=== PATIENT | female | born 2000 | race Hispanic/Latino ===

== ENCOUNTER 2021-11-23 12:12 | Day surgery (SDC) | payer OTHER ==
[2021-11-23] MEDS ORDERED: Acetaminophen 500 MG TAB ONE (13:00)
[2021-11-23] MEDS ORDERED: Acetaminophen 500 MG TAB PO SCH (13:00)
[2021-11-23] MEDS ORDERED: Iron Sucrose Complex 500 MG in Sodium Chloride 0.9% 250 ML 250 ML IVPB SCH (13:00)
== END 2021-11-23 17:30 | disposition home or self-care (01) ==
LOC: CSHSDC/OP 12:12
PROVIDERS: ATTEND Student in an Organized Health Care Education/Training Program
DX: O99.019 Anemia complicating pregnancy, unspecified trimester (principal); Z3A.00 Weeks of gestation of pregnancy not specified
CPT/HCPCS: J1756; J7050

== ENCOUNTER 2021-12-05 15:53 | Inpatient (IN) | payer OTHER ==
[~2021-12-05 15:53] MED LIST: Bupivacaine 0.25% HCL 30 ML VIAL ONE
[2021-12-05] MEDS ORDERED: Promethazine HCl 25 MG/ML VIAL IM PRN ×2 (16:47→19:15)
[2021-12-05] MEDS ORDERED: hydrALAZINE 20 MG/ML VIAL SLOW IVP PRN ×4 (16:47→19:15)
[2021-12-05] MEDS ORDERED: Lorazepam 2 MG/ML VIAL SLOW IVP PRN (16:47)
[2021-12-05] MEDS ORDERED: Calcium Gluc 4.6 MEQ/10 ML (100 MG/ML) SLOW IVP PRN (16:47)
[2021-12-05] MEDS ORDERED: Labetalol HCl 100 MG/20 ML VIAL SLOW IVP PRN ×2 (16:47)
[2021-12-05] MEDS ORDERED: Docusate 100 MG CAP PO PRN (16:47)
[2021-12-05] MEDS ORDERED: Ondansetron PF 4 MG/2 ML Vial IVP PRN ×2 (16:47→19:15)
[2021-12-05 16:59] VITALS: BMI 29.8
[2021-12-05 17:44] LABS: Hemoglobin 10.9 g/dL (12.0-15.5); Mean Corpuscular HGB CONC 32.2 g/dL (32.0-36.0); Mean Corpuscular Hemoglobin 24.3 pg (27.0-33.0); Mean Corpuscular Volume 75.4 fl (81.6-98.3); Mean Platelet Volume 9.9 fl (7.4-10.4); Platelet Count 302 10x3/uL (150-450); RBC Distribution Width 20.3 % (11.5-14.5); Red Blood Cell (RBC) Count 4.48 10x6/uL (3.90-5.03); White Blood Cell (WBC) Count 11.7 10x3/uL (3.5-10.5)
[2021-12-05 18:00] LABS: ALT (SGPT) 18 U/L (8-55); AST (SGOT) 18 U/L (5-34); Albumin 3.5 g/dL (3.5-5.0); Alkaline Phosphatase 166 U/L (40-100); Anion Gap 14 mmol/L (10-20); BUN (Urea Nitrogen) 11 mg/dL (7.0-18.7); Bilirubin, Total 0.3 mg/dL (0.2-1.2); Calc. Creatinine Clearance 180 mL/min (70-130); Calcium 9.2 mg/dL (7.8-10.44); Carbon Dioxide 18 mmol/L (22-29); Chloride 108 mmol/L (98-107); Estimated GFR 131; Globulin 3.3 g/dL (2.4-3.5); Glucose 67 mg/dL (70-105); Protein, Total 6.8 g/dL (6.0-8.3); Sodium 136 mmol/L (136-145)
[2021-12-05 18:22] LABS: HBSAg Index 0.16 S/CO (0-0.99); Hep B Surf Ag Non-Reactive S/CO (NonReactive)
[2021-12-05 18:24] LABS: Syphilis Antibody Nonreactive (Nonreactive); Syphilis Antibody Index 0.03 S/CO (<1.00 Non-Reactive)
[2021-12-05 18:35] LABS: Creatinine, Urine 114.21 mg/dL (47-110)
[2021-12-05] MEDS ORDERED: Lidocaine 1% (PF) 30 ML VIAL SC PRN (19:15)
[2021-12-05] MEDS ORDERED: NS w/ Oxytocin 30 units 500 ML IV SCH ×2 (19:15)
[2021-12-05] MEDS ORDERED: Misoprostol 200 MCG TAB PR PRN (19:15)
[2021-12-05] MEDS ORDERED: Diphenoxylate HCl/Atropine Tablet PO PRN ×2 (19:15)
[2021-12-05] MEDS ORDERED: Ibuprofen 800 MG TAB PO PRN (19:15)
[2021-12-05] MEDS ORDERED: Misoprostol 100 MCG TAB VAG SCH (19:15)
[2021-12-05] MEDS ORDERED: Carboprost 250 MCG/ML AMP IM PRN (19:15)
[2021-12-05 19:20] LABS: Bilirubin Neg (Negative); Blood, Urine 150 (Negative); Clarity Cloudy (Clear); Glucose, Urine (Dipstick) Normal (Negative); Ketone, Urine 15 mg/dL (Negative); Leukocyte 500 (Negative); Nitrite Positive (Negative); Protein, Urine (Dipstick) 100 mg/dl (Neg-Trace); Specific Gravity, Urine 1.015 (1.005-1.030); Urobilinogen Normal mg/dL (Less than 2)
[2021-12-05 19:29] LABS: WBC/HPF Greater Than 50 HPF (0-3)
[2021-12-05 19:30] LABS: Bacteria/HPF 2+ HPF (None Seen); Mucous/LPF Rare LPF (<2+)
[2021-12-05] MEDS: Misoprostol 100 MCG TAB VAG SCH (19:58)
[2021-12-05] MEDS: Lactated Ringer's 1,000 ML IV SCH (20:00)
[2021-12-05] MEDS: Misoprostol 100 MCG TAB PO SCH (21:00)
[2021-12-05] MEDS ORDERED: Fosfomycin 3 GM/Packet PO SCH (21:30)
[2021-12-06] MEDS ORDERED: Fluticasone Propionate Nasal Spray 16 gm Bottle NASAL SCH ×2 (00:15→09:00)
[2021-12-06 01:39] LABS: SARS-CoV-2 NAA Rapid Test Not Detected (NotDetected)
[2021-12-06] MEDS: Misoprostol 100 MCG TAB VAG SCH ×2 (01:59→06:15)
[2021-12-06] MEDS: Butorphanol Tartrate 1 MG/ML VIAL SLOW IVP PRN ×2 (13:53→16:39)
[2021-12-06] MEDS ORDERED: Fentanyl 2 mcg/Bup 0.1% Cadd 100 ML ONE (19:33)
[2021-12-06] MEDS: Lactated Ringer's 1,000 ML IV SCH (19:35)
[2021-12-06] MEDS ORDERED: Ondansetron PF 4 MG/2 ML Vial IVP PRN (20:35)
[2021-12-06] MEDS ORDERED: Lactated Ringer's 500 ML IV PRN (20:35)
[2021-12-06] MEDS ORDERED: Naloxone HCl 0.4 mg/ml Vial IVP PRN ×2 (20:35)
[2021-12-06] MEDS ORDERED: ePHEDrine Sulfate 50 MG/10 ML VIAL SLOW IVP PRN (20:35)
[2021-12-06] MEDS ORDERED: Moisturizing Cream (Eucerin) 113 GM JAR TOP PRN (20:35)
[2021-12-06] MEDS ORDERED: Acetaminophen 325 MG TAB PO PRN (20:35)
[2021-12-06] MEDS ORDERED: diphenhydrAMINE 50 MG/ML VIAL IVP PRN (20:35)
[2021-12-06] MEDS ORDERED: Promethazine HCl 25 MG/ML VIAL IM PRN (20:35)
[2021-12-06] MEDS ORDERED: Fentanyl 2 mcg/Bupivacaine 0.1% Cassette 100 ML EPIDURAL SCH (20:45)
[2021-12-06] MEDS ORDERED: Communication Order-Pharmacy FS SCH (20:45)
[2021-12-07] MEDS ORDERED: Promethazine HCl 25 MG/ML VIAL IM PRN (02:54)
[2021-12-07] MEDS ORDERED: Boostrix 0.5 ML (Tdap) VIAL (>/=7 yrs of age) IM ONE (02:54)
[2021-12-07] MEDS ORDERED: hydrALAZINE 20 MG/ML VIAL SLOW IVP PRN (02:54)
[2021-12-07] MEDS ORDERED: Misoprostol 200 MCG TAB VAG PRN (02:54)
[2021-12-07] MEDS ORDERED: Milk Of Magnesia 30 ML UDCUP PO PRN (02:54)
[2021-12-07] MEDS ORDERED: Lanolin Ointment 7 GM TUBE TOP PRN (02:54)
[2021-12-07] MEDS ORDERED: NS w/ Oxytocin 30 units 500 ML IV SCH (02:54)
[2021-12-07] MEDS ORDERED: Bisacodyl 10 MG SUPP PR PRN (02:54)
[2021-12-07] MEDS ORDERED: Ondansetron PF 4 MG/2 ML Vial IVP PRN (02:54)
[2021-12-07] MEDS ORDERED: Benzocaine-Menthol 82.5 ML CAN TOP PRN (02:54)
[2021-12-07] MEDS: Ibuprofen 800 MG TAB PO SCH ×3 (03:32→19:01)
[2021-12-07] MEDS ORDERED: Carboprost 250 MCG/ML AMP ONE (04:15)
[2021-12-07] MEDS ORDERED: Tranexamic Acid 1,000 MG in Sodium Chloride 0.9% 250 ML 250 ML IVPB SCH (04:30)
[2021-12-07] MEDS ORDERED: Carboprost 250 MCG/ML AMP IM SCH (04:30)
[2021-12-07] MEDS ORDERED: Diphenoxylate HCl/Atropine Tablet PO SCH (04:45)
[2021-12-07] MEDS ORDERED: Fentanyl 100 MCG/2 ML VIAL SLOW IVP PRN (05:24)
[2021-12-07] MEDS ORDERED: Ibuprofen 800 MG TAB PO SCH (06:00)
[2021-12-07 08:04] LABS: Hemoglobin 9.2 g/dL (12.0-15.5); Mean Corpuscular HGB CONC 32.6 g/dL (32.0-36.0); Mean Corpuscular Hemoglobin 25.3 pg (27.0-33.0); Mean Corpuscular Volume 77.5 fl (81.6-98.3); Mean Platelet Volume 10.1 fl (7.4-10.4); Platelet Count 211 10x3/uL (150-450); RBC Distribution Width 21.5 % (11.5-14.5); Red Blood Cell (RBC) Count 3.64 10x6/uL (3.90-5.03); White Blood Cell (WBC) Count 17.1 10x3/uL (3.5-10.5)
[2021-12-07 08:14] LABS: PTT 32.2 sec (22.0-33.0); Prothrombin Time 10.4 sec (9.5-12.1)
[2021-12-07] MEDS: Docusate 100 MG CAP PO SCH ×2 (10:49→21:23)
[2021-12-07] MEDS: Ferrous Sulfate 325 MG TAB PO SCH ×2 (10:49→19:02)
[2021-12-07] MEDS: Prenatal Vitamin 1 TAB PO SCH (10:49)
[2021-12-08] MEDS: Ibuprofen 800 MG TAB PO SCH ×3 (04:54→21:32)
[2021-12-08] MEDS: Docusate 100 MG CAP PO SCH ×2 (10:21→21:31)
[2021-12-08] MEDS: Ferrous Sulfate 325 MG TAB PO SCH ×2 (10:21→21:31)
[2021-12-08] MEDS: Prenatal Vitamin 1 TAB PO SCH (10:21)
[2021-12-08 12:22] LABS: Bilirubin Neg (Negative); Blood, Urine 250 (Negative); Clarity Cloudy (Clear); Glucose, Urine (Dipstick) Normal (Negative); Ketone, Urine Negative (Negative); Leukocyte 500 (Negative); Nitrite Negative (Negative); Protein, Urine (Dipstick) 100 mg/dl (Neg-Trace); Urobilinogen Normal mg/dL (Less than 2); pH, Urine 6.5 (5.0-9.0)
[2021-12-08 12:45] LABS: Bacteria/HPF 1+ HPF (None Seen); RBC/HPF Greater than 50 HPF (0-3); Urine Culture Reflex No No; WBC/HPF 21-50 HPF (0-3)
[2021-12-08] MEDS: Misoprostol 100 MCG TAB PO SCH ×2 (22:05→22:06)
[2021-12-08] MEDS: Misoprostol 100 MCG TAB VAG SCH ×2 (22:06→22:07)
[2021-12-08] MEDS: Lactated Ringer's 1,000 ML IV SCH (22:07)
[2021-12-09] MEDS: Ibuprofen 800 MG TAB PO SCH (04:50)
[2021-12-09] MEDS: Prenatal Vitamin 1 TAB PO SCH (08:29)
[2021-12-09] MEDS: Ferrous Sulfate 325 MG TAB PO SCH (08:29)
[2021-12-09] MEDS: Docusate 100 MG CAP PO SCH (08:29)
[2021-12-09 08:44] VITALS: BP 114/74; TEMP 98.2
== END 2021-12-09 12:45 | disposition home or self-care (01) | DRG 806 ==
LOC: CSHLD/OP 15:53 → CSHLD 19:23 → CSHPED 12-07 08:55
PROVIDERS: ADMIT Family Medicine; ATTEND Family Medicine
PROC: 3E0P7VZ Introduction of Hormone into Female Reproductive, Via Natural or Artificial Opening (ICD-10-PCS; 2021-12-05)
PROC: 10H07YZ Insertion of Other Device into Products of Conception, Via Natural or Artificial Opening (ICD-10-PCS; 2021-12-05)
PROC: 10E0XZZ Delivery of Products of Conception, External Approach (ICD-10-PCS; principal; 2021-12-07)
PROC: 30233N1 Transfusion of Nonautologous Red Blood Cells into Peripheral Vein, Percutaneous Approach (ICD-10-PCS; 2021-12-07)
PROC: 0UC97ZZ Extirpation of Matter from Uterus, Via Natural or Artificial Opening (ICD-10-PCS; 2021-12-07)
DX: O11.4 Pre-existing hypertension with pre-eclampsia, complicating childbirth (principal); N39.0 Urinary tract infection, site not specified; Z37.0 Single live birth; O10.92 Unspecified pre-existing hypertension complicating childbirth; Z3A.38 38 weeks gestation of pregnancy; Z20.822 Contact with and (suspected) exposure to COVID-19; D64.9 Anemia, unspecified; O99.02 Anemia complicating childbirth; Z79.82 Long term (current) use of aspirin; Z79.899 Other long term (current) drug therapy; O23.43 Unspecified infection of urinary tract in pregnancy, third trimester; O69.81X0 Labor and delivery complicated by cord around neck, without compression, not applicable or unspecified; O70.0 First degree perineal laceration during delivery; O72.1 Other immediate postpartum hemorrhage
CPT/HCPCS: 36415; 36430; 51702; 80053; 81001; 82570; 84156; 85027; 85384; 85610; 85730; 86780; 86850; 86900; 86901; 87340; 99285; J0595; J2405; J2590; J3490; J7050; J7120; P9016; S0020; U0002